=== PATIENT | female | born 1985 | race Caucasian/White ===

== ENCOUNTER 2017-12-10 21:57 | Emergency (ER) | payer OTHER, SELFPAY ==
[2017-12-10 22:11] VITALS: BP 140/72; PULSE 90; RESP 24; TEMP 37.5; O2SAT 97; BMI 28.2
--- NOTE | 2017-12-10 22:27 | ED.EXTPRO ---
HPI - Extremity Problem General Chief complaint: Extremity Problem,Nontraumatic Stated complaint: PAIN S/P SURGERY Time Seen by Provider: 12/10/17 22:27 Source: patient, RN notes reviewed and old records reviewed Mode of arrival: wheelchair History of Present Illness HPI Narrative: Patient is a 32-year-old female who presents with on postoperative left ankle pain. Her surgeon called giving the report saying she was coming in. She was released from [place] yesterday after ankle reconstruction surgery. Her postoperative pain she actually required femoral block and was admitted overnight. The block likely were off and her pain is out of control. She was in is taking Dilaudid. She has no numbness or tingling but she is unable to move her toes due to severe pain. She said she had fever at home of 101. She did not take Tylenol or ibuprofen she is afebrile here. Surgeon is aware at thought to be due to anesthesia. She has no cough or painful urination. MD Complaint: extremity pain Onset (ago): hour(s) Pain Consistency: constant Related Data Home Medications Medication Instructions Recorded Confirmed aspirin [Aspir-81] 81 mg PO DAILY 12/10/17 12/10/17 baclofen 10 mg PO TID 12/10/17 12/10/17 docusate sodium 100 mg PO BID 12/10/17 12/10/17 hydromorphone [Dilaudid] 2 mg PO Q4H PRN 12/10/17 12/10/17 hydroxyzine HCl 25 mg PO TID-QID PRN 12/10/17 12/10/17 ibuprofen 800 mg PO BID 12/10/17 12/10/17 Allergies Allergy/AdvReac Type Severity Reaction Status Date / Time acetaminophen [From PERCOCET] Allergy Unknown RASH Verified 12/10/17 22:15 codeine [CODEINE] Allergy Unknown VOMITTING Verified 12/10/17 22:15 oxycodone [From PERCOCET] Allergy Unknown HIVES Verified 12/10/17 22:15 Sulfa (Sulfonamide Allergy Unknown VOMITTING Verified 12/10/17 22:15 Antibiotics) [SULFA (SULFONAMIDE ANTIBIOTICS)] Review of Systems Review of Systems All systems reviewed & are unremarkable except as noted in HPI and below Constitutional Reports as per HPI, Reports system reviewed and no additional complaints, except as docu, Reports fever(s) and Denies frequent falls ENT Ears, Nose, Mouth, and Throat: Denies dizziness Cardiovascular Denies chest pain, Denies dyspnea and Denies dyspnea on exertion Respiratory Denies change in phlegm color, Denies cough, Denies dyspnea and Denies dyspnea on exertion Gastrointestinal Gastrointestinal: Denies abdominal pain, Denies change in bowel habits, Denies diarrhea, Denies nausea and Denies vomiting Genitourinary Denies hematuria, Denies flank pain, Denies urinary incontinence and Denies urinary urgency Musculoskeletal Reports as per HPI, Denies numbness and Denies tingling Neurologic Denies behavioral changes, Denies confusion, Denies dizziness, Denies frequent falls, Denies numbness, Denies radicular pain, Denies tingling and Denies paresthesias Psychiatric Denies behavioral changes and Denies confusion REPLACED BY [facility] Surgical History History of third molar tooth extraction Status post delivery (06/19/09) Status post dilation and curettage Status post laparoscopy (12/22/15) Family History Brother Age: 25 Lyme disease Father Age: 68 High cholesterol Grandmother Cancer Breast cancer Grandfather Heart disease Grandmother Cancer Heart disease Breast cancer Social History Smoking Status: Never smoker Exam Const General: cooperative, well developed and other (In severe pain) Nutritional Appearance: well nourished Orientation: alert, awake, oriented x3 and not confused [facility] Head: normal to inspection Eyes General: appearance normal, both eyes and all related structures Neck Neck: normal visual inspection, full ROM and no meningeal signs Resp Effort & Inspection: normal respiratory effort, able to speak in complete sentences, no respiratory distress and no use of accessory muscles Auscultation: clear to auscultation bilaterally, no rales, no rhonchi and no wheezes Cardio Rate: regular rate Rhythm: regular rhythm Heart Sounds: no click, no gallops, no murmurs and no rubs Pulses: normal peripheral pulses Skin General: no rashes or lesions noted, No erythema, No mottling and No petechiae Extrem Left lower extremity: lower leg Other: Left lower extremity in cast out of pain is controlled she is able to move her toes cap refill less than 2 sec. No erythema. MDM - Extremity (Nontraumatic) MDM Narrative Medical decision making narrative: Patient is feeling much better after after of medications. She feels comfortable going home. Blood work is within normal limits. She has no infectious symptoms to be causing fever. It DVT is thought of however it has only been 24 hr. At this time her subjective fever is probably from anesthesia as the surgeon has suggested. Lab Data Result diagrams: 12/10/17 21:20 12/10/17 21:20 Lab Results 12/10/17 12/10/17 Range/Units 21:20 21:20 WBC 11.8 H (4.5-11.0) X10^3/uL RBC 3.61 L (4.0-5.2) X10^6/uL Hgb 12.1 (12.0-16.0) g/dL Hct 34.8 L (36-46) % MCV 96.4 (80-100) fL MCH 33.6 (26-34) PG MCHC 34.8 (30-36) % RDW 12.3 (11.6-14.8) % Plt Count 158 (150-400) X10^3/uL Neut % (Auto) 83.3 H (50-75) % Lymph % (Auto) 10.0 L (25-40) % [place] % (Auto) 6.3 (3-14) % Eos % (Auto) 0.1 L (2-4) % Baso % (Auto) 0.3 (0-2) % Neut # (Auto) 9800 H (8184-8187) /uL Sodium 137 (137-145) mmol/L Potassium 3.8 (3.4-5.1) mmol/L Chloride 103.0 (98-107) mmol/L Carbon Dioxide 24.0 (22-32) mmol/L BUN 10.0 (7-17) mg/dL Creatinine 0.60 (0.52-1.04) mg/dL Estimated GFR > 60.0 (>60) mL/min BUN/Creatinine Ratio 16.7 (6-22) Glucose 120 H (70-100) mg/dL Calcium 8.7 (8.4-10.2) mg/dL Total Bilirubin 1.3 (0.2-1.3) mg/dL AST 28 (14-36) IU/L ALT 28 (9-52) IU/L Alkaline Phosphatase 40 (38-126) U/L Total Protein 6.5 (6.3-8.2) g/dL Albumin 4.0 (3.5-5.0) g/dL Globulin 2.5 (1.7-4.1) g/dL Albumin/Globulin Ratio 1.6 (1.0-2.8) Discharge Plan Departure Patient Disposition: Home, Self-Care Clinical Impression: Acute left ankle pain Discharge Date/Time: 12/10/17 23:48 Interventions: ED Discharge Assessment Last Done: 12/10/17 23:55 Instructions: DI for Postoperative Pain Activity Restrictions/Additional Instructions: *You have been diagnosed with left ankle pain, postoperative pain *What to do: Stay on at pain at schedule as previously discussed with your primary surgeon *Take medications as directed *Follow up with your primary care provider in 2-3 days *Return to ER if you should have numbness, tingling, increased pain or any new, worsening or concerning symptoms Prescriptions: No Action ibuprofen 800 mg Tablet 800 mg PO BID RF: 0 aspirin [Aspir-81] 81 mg Tablet,Delayed Release (Dr/Ec) 81 mg PO DAILY RF: 0 hydromorphone [Dilaudid] 2 mg Tablet 2 mg PO Q4H PRN (Reason: Pain, Moderate) RF: 0 baclofen 10 mg Tablet 10 mg PO TID RF: 0 hydroxyzine HCl 25 mg Tablet 25 mg PO TID-QID PRN (Reason: Pain (Scale Score 1-3)) RF: 0 docusate sodium 100 mg Tablet 100 mg PO BID RF: 0 Referrals: Ge Yi MD [Primary Care Provider] -
[2017-12-10] MEDS: HYDROMORPHONE 2 MG INJ 1 MG IV (22:30)
[2017-12-10 22:35] LABS: Add Manual Diff / Slide Review NO; Basophils Percent Auto 0.3 % (0-2); Eosinophils Percent Auto 0.1 % (2-4); Hematocrit 34.8 % (36-46); Hemoglobin 12.1 g/dL (12.0-16.0); Mean Corpuscular HGB Conc 34.8 % (30-36); Mean Corpuscular Hemoglobin 33.6 PG (26-34); Mean Corpuscular Volume 96.4 fL (80-100); Monocytes Percent Auto 6.3 % (3-14); Neutrophils Absolute Auto 9800 /uL (3000-5900); Neutrophils Percent Auto 83.3 % (50-75); Platelet Count 158 X10^3/uL (150-400); Red Blood Cell Count 3.61 X10^6/uL (4.0-5.2); Red Cell Distribution Width 12.3 % (11.6-14.8); White Blood Cell Count 11.8 X10^3/uL (4.5-11.0)
[2017-12-10] MEDS: KETOROLAC 60 MG/2 ML VIAL 30 MG IV (22:37)
[2017-12-10 22:44] LABS: Alanine Aminotransferase 28 IU/L (9-52); Alkaline Phosphatase 40 U/L (38-126); Aspartate Aminotransferase 28 IU/L (14-36); BUN Creatinine Ratio 16.7 (6-22); Bilirubin Total 1.3 mg/dL (0.2-1.3); Calcium 8.7 mg/dL (8.4-10.2); Estimated Glomerular Filt Rate > 60.0 mL/min (>60); Glucose 120 mg/dL (70-100); Potassium 3.8 mmol/L (3.4-5.1); Sodium 137 mmol/L (137-145); Total Protein 6.5 g/dL (6.3-8.2)
[2017-12-10 22:52] LABS: Albumin Globulin Ratio 1.6 (1.0-2.8); Globulin 2.5 g/dL (1.7-4.1); HEMOLYSIS < 15 (0-50)
--- NOTE | 2017-12-10 23:02 | PC.NURSE ---
Pt states increasing pain to left ankle 8/10 post op ankle reconstructive surgery yesterday afternoon and states medication given is not giving pain relief with pain increasing.
--- NOTE | 2017-12-10 23:44 | ED_ITS ---
HPI - Extremity Problem General Chief complaint: Extremity Problem,Nontraumatic Stated complaint: PAIN S/P SURGERY Time Seen by Provider: 12/10/17 22:27 Source: patient, RN notes reviewed and old records reviewed Mode of arrival: wheelchair History of Present Illness HPI Narrative: Patient is a 32-year-old female who presents with on postoperative left ankle pain. Her surgeon called giving the report saying she was coming in. She was released from [place] yesterday after ankle reconstruction surgery. Her postoperative pain she actually required femoral block and was admitted overnight. The block likely were off and her pain is out of control. She was in is taking Dilaudid. She has no numbness or tingling but she is unable to move her toes due to severe pain. She said she had fever at home of 101. She did not take Tylenol or ibuprofen she is afebrile here. Surgeon is aware at thought to be due to anesthesia. She has no cough or painful urination. MD Complaint: extremity pain Onset (ago): hour(s) Pain Consistency: constant Related Data Home Medications Medication Instructions Recorded Confirmed aspirin [Aspir-81] 81 mg PO DAILY 12/10/17 12/10/17 baclofen 10 mg PO TID 12/10/17 12/10/17 docusate sodium 100 mg PO BID 12/10/17 12/10/17 hydromorphone [Dilaudid] 2 mg PO Q4H PRN 12/10/17 12/10/17 hydroxyzine HCl 25 mg PO TID-QID PRN 12/10/17 12/10/17 ibuprofen 800 mg PO BID 12/10/17 12/10/17 Allergies Allergy/AdvReac Type Severity Reaction Status Date / Time acetaminophen [From PERCOCET] Allergy Unknown RASH Verified 12/10/17 22:15 codeine [CODEINE] Allergy Unknown VOMITTING Verified 12/10/17 22:15 oxycodone [From PERCOCET] Allergy Unknown HIVES Verified 12/10/17 22:15 Sulfa (Sulfonamide Allergy Unknown VOMITTING Verified 12/10/17 22:15 Antibiotics) [SULFA (SULFONAMIDE ANTIBIOTICS)] Review of Systems Review of Systems All systems reviewed & are unremarkable except as noted in HPI and below Constitutional Reports as per HPI, Reports system reviewed and no additional complaints, except as docu, Reports fever(s) and Denies frequent falls ENT Ears, Nose, Mouth, and Throat: Denies dizziness Cardiovascular Denies chest pain, Denies dyspnea and Denies dyspnea on exertion Respiratory Denies change in phlegm color, Denies cough, Denies dyspnea and Denies dyspnea on exertion Gastrointestinal Gastrointestinal: Denies abdominal pain, Denies change in bowel habits, Denies diarrhea, Denies nausea and Denies vomiting Genitourinary Denies hematuria, Denies flank pain, Denies urinary incontinence and Denies urinary urgency Musculoskeletal Reports as per HPI, Denies numbness and Denies tingling Neurologic Denies behavioral changes, Denies confusion, Denies dizziness, Denies frequent falls, Denies numbness, Denies radicular pain, Denies tingling and Denies paresthesias Psychiatric Denies behavioral changes and Denies confusion [facility] Surgical History History of third molar tooth extraction Status post delivery (06/19/09) Status post dilation and curettage Status post laparoscopy (12/22/15) Family History Brother Age: 25 Lyme disease Father Age: 68 High cholesterol Grandmother Cancer Breast cancer Grandfather Heart disease Grandmother Cancer Heart disease Breast cancer Social History Smoking Status: Never smoker Exam Const General: cooperative, well developed and other (In severe pain) Nutritional Appearance: well nourished Orientation: alert, awake, oriented x3 and not confused [facility] Head: normal to inspection Eyes General: appearance normal, both eyes and all related structures Neck Neck: normal visual inspection, full ROM and no meningeal signs Resp Effort & Inspection: normal respiratory effort, able to speak in complete sentences, no respiratory distress and no use of accessory muscles Auscultation: clear to auscultation bilaterally, no rales, no rhonchi and no wheezes Cardio Rate: regular rate Rhythm: regular rhythm Heart Sounds: no click, no gallops, no murmurs and no rubs Pulses: normal peripheral pulses Skin General: no rashes or lesions noted, No erythema, No mottling and No petechiae Extrem Left lower extremity: lower leg Other: Left lower extremity in cast out of pain is controlled she is able to move her toes cap refill less than 2 sec. No erythema. MDM - Extremity (Nontraumatic) MDM Narrative Medical decision making narrative: Patient is feeling much better after after of medications. She feels comfortable going home. Blood work is within normal limits. She has no infectious symptoms to be causing fever. It DVT is thought of however it has only been 24 hr. At this time her subjective fever is probably from anesthesia as the surgeon has suggested. Lab Data Result diagrams: 12/10/17 21:20 12/10/17 21:20 Lab Results 12/10/17 12/10/17 Range/Units 21:20 21:20 WBC 11.8 H (4.5-11.0) X10^3/uL RBC 3.61 L (4.0-5.2) X10^6/uL Hgb 12.1 (12.0-16.0) g/dL Hct 34.8 L (36-46) % MCV 96.4 (80-100) fL MCH 33.6 (26-34) PG MCHC 34.8 (30-36) % RDW 12.3 (11.6-14.8) % Plt Count 158 (150-400) X10^3/uL Neut % (Auto) 83.3 H (50-75) % Lymph % (Auto) 10.0 L (25-40) % [place] % (Auto) 6.3 (3-14) % Eos % (Auto) 0.1 L (2-4) % Baso % (Auto) 0.3 (0-2) % Neut # (Auto) 9800 H (2086-4625) /uL Sodium 137 (137-145) mmol/L Potassium 3.8 (3.4-5.1) mmol/L Chloride 103.0 (98-107) mmol/L Carbon Dioxide 24.0 (22-32) mmol/L BUN 10.0 (7-17) mg/dL Creatinine 0.60 (0.52-1.04) mg/dL Estimated GFR > 60.0 (>60) mL/min BUN/Creatinine Ratio 16.7 (6-22) Glucose 120 H (70-100) mg/dL Calcium 8.7 (8.4-10.2) mg/dL Total Bilirubin 1.3 (0.2-1.3) mg/dL AST 28 (14-36) IU/L ALT 28 (9-52) IU/L Alkaline Phosphatase 40 (38-126) U/L Total Protein 6.5 (6.3-8.2) g/dL Albumin 4.0 (3.5-5.0) g/dL Globulin 2.5 (1.7-4.1) g/dL Albumin/Globulin Ratio 1.6 (1.0-2.8) Discharge Plan Departure Patient Disposition: Home, Self-Care Clinical Impression: Acute left ankle pain Discharge Date/Time: 12/10/17 23:48 Interventions: ED Discharge Assessment Last Done: 12/10/17 23:55 Instructions: DI for Postoperative Pain Activity Restrictions/Additional Instructions: *You have been diagnosed with left ankle pain, postoperative pain *What to do: Stay on at pain at schedule as previously discussed with your primary surgeon *Take medications as directed *Follow up with your primary care provider in 2-3 days *Return to ER if you should have numbness, tingling, increased pain or any new, worsening or concerning symptoms Prescriptions: No Action ibuprofen 800 mg Tablet 800 mg PO BID RF: 0 aspirin [Aspir-81] 81 mg Tablet,Delayed Release (Dr/Ec) 81 mg PO DAILY RF: 0 hydromorphone [Dilaudid] 2 mg Tablet 2 mg PO Q4H PRN (Reason: Pain, Moderate) RF: 0 baclofen 10 mg Tablet 10 mg PO TID RF: 0 hydroxyzine HCl 25 mg Tablet 25 mg PO TID-QID PRN (Reason: Pain (Scale Score 1-3)) RF: 0 docusate sodium 100 mg Tablet 100 mg PO BID RF: 0 Referrals: Ge Yi MD [Primary Care Provider] -
[2017-12-10 23:55] VITALS: BP 107/46; PULSE 64; RESP 14; TEMP 36.9; O2SAT 100
== END 2017-12-10 23:48 | disposition home or self-care (01) ==
PROVIDERS: Emergency Provider Emergency Medicine; Family Provider Internal Medicine; PCP Internal Medicine
DX: M25.572 Pain in left ankle and joints of left foot (principal)
CPT/HCPCS: 36591; 80053; 85025; 96374; 96375; 99282; 99284; J1170; J1885

== ENCOUNTER → 2018-02-16 16:12 | Outpatient (CLI) | payer OTHER, SELFPAY ==
--- NOTE | 2018-02-16 16:15 | DI.RAD.S_ITS ---
PROCEDURE: XR CHEST 2V INDICATIONS: cough TECHNIQUE: 2 views of the chest were acquired. COMPARISON: None. FINDINGS: Surgical changes and devices: None. Lungs and pleura: No pleural effusions or pneumothorax. Lungs are clear. Mediastinum: Mediastinal contours are normal. Heart size is normal. Bones and chest wall: No suspicious bony abnormalities. Soft tissues appear unremarkable. IMPRESSION: No radiographic evidence of acute cardiopulmonary pathology. Dictated by: Miles Gauthier M.D. on 02/16/2018 at 16:32 Approved by: Miles Gauthier M.D. on 02/16/2018 at 16:33
== END ==
PROVIDERS: Family Provider Internal Medicine; PCP Internal Medicine; Visit Provider Internal Medicine
DX: R05 Cough (principal)
CPT/HCPCS: 71046

== ENCOUNTER → 2018-08-14 09:33 | Outpatient (CLI) | payer OTHER, SELFPAY ==
--- NOTE | 2018-08-14 09:37 | DI.RAD.S_ITS ---
PROCEDURE: XR KNEE RT 3V INDICATIONS: R knee pain TECHNIQUE: 3 views of the knee were acquired. COMPARISON: None. FINDINGS: Bones: No fractures or dislocations. No suspicious bony lesions. Soft tissues: There is a mild joint effusion. No suspicious soft tissue calcifications. IMPRESSION: Mild joint effusion. No significant plain film bony abnormality can be seen. If there is strong clinical suspicion for internal derangement of this joint, please consider a dedicated MRI for further evaluation (assuming that there is no contraindication to MRI). Dictated by: Fran Yates M.D. on 08/14/2018 at 9:15 Approved by: Fran Yates M.D. on 08/14/2018 at 9:15
== END ==
PROVIDERS: Family Provider Internal Medicine; PCP Internal Medicine; Visit Provider Physician Assistant
DX: M25.561 Pain in right knee (principal); M25.461 Effusion, right knee
CPT/HCPCS: 73562

== ENCOUNTER → 2018-08-25 07:29 | Outpatient (CLI) | payer OTHER, SELFPAY ==
--- NOTE | 2018-08-25 07:32 | DI.MRI.S_ITS ---
PROCEDURE: MR KNEE RT WO CON INDICATIONS: right knee pain TECHNIQUE: Noncontrast sagittal PD fast spin echo and T2 fast spin echo with fat saturation, sagittal 3-D FLASH with fat saturation; coronal T1 spin echo and PD fast spin echo with fat saturation, and axial PD fast spin echo with fat saturation through the knee. COMPARISON: [facility], CR, XR KNEE RT 3V, 08/14/2018, 9:52. FINDINGS: Image quality: Excellent. Menisci: Vague linear oblique high T2 signal intensity traverses the medial meniscal body, demonstrating inferior articular surface extension, suggestive of oblique tearing. Lateral meniscus is intact. Cruciate ligaments: The anterior and posterior cruciate ligaments appear intact. Medial structures: The medial collateral ligament appears intact. Visualized portions of the pes anserinus tendons appear normal. No abnormal bursal fluid. Lateral structures: The lateral collateral ligament, long and short heads of the biceps femoris tendon appear intact. The popliteus tendon appears normal. Iliotibial band appears normal. Anterior structures: The quadriceps and patellar tendons appear intact. There is mild T2 signal elevation within the patellar tendon at the patellar insertion site. Patellar alignment is normal. No femoral trochlear dysplasia or ventral trochlear prominence. No edema in the infrapatellar fat pad. Bones and cartilage: No bone marrow contusions or fractures. Red marrow reconversion within the distal femur and proximal tibia. There is mild diffuse articular cartilage loss overlying the weightbearing aspects of the medial femoral condyle and medial tibial plateau. Joint space: There is a small knee joint effusion and a trace Taylor's cyst. Normal appearing synovial plicae are incidentally noted. IMPRESSION: 1. Findings suggestive of a subtle oblique tear of the medial meniscal body. 2. Mild medial compartment articular cartilage loss. 3. Small knee joint effusion and trace Taylor's cyst. 4. Mild patellar tendinitis. Dictated by: Elvia Quezada M.D. on 08/25/2018 at 8:55 Approved by: Elvia Quezada M.D. on 08/25/2018 at 8:58
== END ==
PROVIDERS: Family Provider Internal Medicine; PCP Internal Medicine; Visit Provider Physician Assistant
DX: M25.561 Pain in right knee (principal); M25.461 Effusion, right knee; M76.51 Patellar tendinitis, right knee
CPT/HCPCS: 73721

== ENCOUNTER → 2020-09-28 12:01 | Outpatient (CLI) | payer OTHER, SELFPAY ==
--- NOTE | 2020-09-28 12:03 | DI.RAD.S_ITS ---
PROCEDURE: XR WRIST RT MIN 3V INDICATIONS: wrist pain TECHNIQUE: 4 views of the wrist were acquired. COMPARISON: None. FINDINGS: Bones: No fractures or dislocations. No suspicious bony lesions. Scaphoid view: Scaphoid is intact Soft tissues: No suspicious soft tissue calcifications. IMPRESSION: No fracture or dislocation. Dictated by: Gera Leonard M.D. on 09/28/2020 at 13:03 Approved by: Gera Leonard M.D. on 09/28/2020 at 13:04
== END ==
PROVIDERS: Family Provider Internal Medicine; PCP Internal Medicine; Referring Provider Physician Assistant; Visit Provider Physician Assistant
DX: M25.531 Pain in right wrist (principal)
CPT/HCPCS: 73110

== ENCOUNTER → 2025-04-16 15:18 | Outpatient (CLI) | payer OTHER, SELFPAY ==
[2025-04-16 16:33] LABS: Influenza A - CEPHEID Flu A NEGATIVE (NEGATIVE); Influenza B - CEPHEID Flu B NEGATIVE (NEGATIVE)
[2025-04-16 16:34] LABS: COVID-19 CEPHEID 4-PLEX PCR Negative (Negative)
== END ==
PROVIDERS: Family Provider Internal Medicine; PCP Family Medicine; Visit Provider Chiropractor
DX: R05.1 Acute cough (principal)
CPT/HCPCS: 87637

== ENCOUNTER → 2025-04-16 15:28 | Outpatient (CLI) | payer OTHER, SELFPAY ==
--- NOTE | 2025-04-16 15:29 | DI.RAD.S_ITS ---
PROCEDURE: XR CHEST 2V INDICATIONS: concern KAYLYN CAP TECHNIQUE: 2 views of the chest were acquired. COMPARISON: None. FINDINGS: Surgical changes and devices: None. Lungs and pleura: Lungs are clear. No pleural effusions or pneumothorax. Mediastinum: Mediastinal contours are normal. Heart size is normal. Bones and chest wall: No suspicious bony abnormalities. Soft tissues appear unremarkable. IMPRESSION: No acute cardiopulmonary abnormality is seen. Dictated by: Elke Talbot M.D. on 04/16/2025 at 14:44 Approved by: Elke Talbot M.D. on 04/16/2025 at 14:45
== END ==
LOC: RAD 15:29
PROVIDERS: Family Provider Internal Medicine; PCP Family Medicine; Referring Provider Chiropractor; Visit Provider Chiropractor
DX: J18.9 Pneumonia, unspecified organism (principal); R05.1 Acute cough
CPT/HCPCS: 71046; 87637